=== PATIENT | male | born 1985 | race Caucasian/White ===

== ENCOUNTER 2018-03-13 02:36 | Emergency (ER) | payer MEDICAID, OTHER ==
--- NOTE | 2018-03-13 02:54 | EDPHY ---
H & P Stated Complaint: vomiting with buring abd pain Time Seen by Provider: 03/13/18 02:54 HPI/ROS: HPI CHIEF COMPLAINT: Abdominal pain and vomiting after eating pizza. HISTORY OF PRESENT ILLNESS: Very pleasant 32-year-old male, history of schizoaffective disorder, presents emergency room with nausea vomiting. Patient reports that he ate [employer] around 6:00 a.m. Tonight. He arrived to work at 11:00 p.m. 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 No diarrhea. No lower abdominal pain. Patient denies any chest pain or shortness of breath. Denies fever. Patient states he vomited about 10-15 times. He states he abdominal pain is pretty much stopped. Past Medical History: Medical history significant for bipolar type schizoaffective disorder. Hyperlipidemia. Past Surgical History: No recent surgery, history left foot surgery. Social History: Smokes tobacco, denies illicit drugs or alcohol. Family History: Noncontributory ROS REVIEW OF SYSTEMS: 10 Systems were reviewed and negative with the exception of the elements mentioned in the history of present illness. Exam Constitutional nontoxic appearing, triage nursing summary reviewed, vital signs reviewed, awake/alert. Eyes normal conjunctivae and sclera, EOMI, PERRLA. HENT normal inspection, atraumatic, moist mucus membranes, no epistaxis, neck supple/ no meningismus, no raccoon eyes. Respiratory clear to auscultation bilaterally, normal breath sounds, no respiratory distress, no wheezing. Cardiovascular rate normal, regular rhythm, no murmur, no edema, distal pulses normal. Gastrointestinal I cannot elicit any tenderness on exam, soft, non-tender, no rebound, no guarding, normal bowel sounds, no distension, no pulsatile mass. Genitourinary no CVA tenderness. Musculoskeletal no midline vertebral tenderness, full range of motion, no calf swelling, no tenderness of extremities, no meningismus, good pulses, neurovascularly intact. Skin pink, warm, & dry, no rash, skin atraumatic. Neurologic awake, alert and oriented x 3, AAOx3, moves all 4 extremities equally, motor intact, sensory intact, CN II-XII intact, normal cerebellar, normal vision, normal speech. Psychiatric normal mood/affect. Heme/Lymph/Immune no lymphadenopathy. Differential diagnosis includes but is not limited to and in no particular order : Bowel obstruction, appendicitis, gallbladder disease, diverticulitis, colitis , enteritis, perforated viscus, gastritis, GERD, esophagitis, urinary tract infection, pyelonephritis, kidney stones Medical Decision Making: Plan for this patient IV establishment IV fluid bolus 2 L normal saline, IV Zofran for nausea, basic blood work, electrolytes, UA, ultrasound right upper quadrant re-evaluate. Re-evaluation: Patient re-evaluated at 5:04 a.m. Resting comfortably no acute distress. Patient is not vomiting. Patient is re-examination at 5:04 a.m. Abdomen soft nontender. Patient's ultrasound called to me negative for acute cholecystitis or gallstones. Enlarged liver. Lab work reviewed. Patient is feeling much better after nausea medicine IV fluids. Will need to re-evaluate. 0701: Patient re-evaluated at this time resting comfortably. No acute distress. Denies any abdominal pain re-examination abdomen is soft nontender. He denies any abdominal pain anymore. P.o. Challenge well. Blood work reviewed. Return precautions discussed with the patient understands return emergency room if there is worsening abdominal pain, fever, vomiting. Source: Patient - Personal History Current Tetanus/Diphtheria Vaccine: Yes Current Tetanus Diphtheria and Acellular Pertussis (TDAP): Yes - Medical/Surgical History Hx Asthma: No Hx Chronic Respiratory Disease: No Hx Diabetes: No Hx Cardiac Disease: No Hx Renal Disease: No Hx Cirrhosis: No Hx Alcoholism: No Hx HIV/AIDS: No Hx Splenectomy or Spleen Trauma: No Other PMH: SCHIZOAFFECTIVE/HYPOTHYROID, cyst removal off of foot - Social History Smoking Status: Current every day smoker Constitutional: Initial Vital Signs Temperature (C) 36.4 C 03/13/18 02:38 Heart Rate 96 03/13/18 02:38 Respiratory Rate 16 03/13/18 02:38 Blood Pressure 113/80 03/13/18 02:38 O2 Sat (%) 94 03/13/18 02:38 O2 Delivery Mode Room Air Allergies/Adverse Reactions: bacitracin [From Neosporin] Allergy (Verified 03/13/18 02:41) bacitracin zinc [From Neosporin] Allergy (Verified 03/13/18 02:41) benzalkonium chloride [From Neosporin] Allergy (Verified 03/13/18 02:41) gramicidin D [From Neosporin] Allergy (Verified 03/13/18 02:41) hydrocortisone [From Neosporin] Allergy (Verified 03/13/18 02:41) neomycin sulfate [From Neosporin] Allergy (Verified 03/13/18 02:41) polymyxin B [From Neosporin] Allergy (Verified 03/13/18 02:41) polymyxin B sulfate [From Neosporin] Allergy (Verified 03/13/18 02:41) Home Medications: Medication Instructions Recorded ARIPiprazole [Abilify] 15 mg PO DAILY #1 tablet 12/09/14 Levothyroxine 03/13/18 Medical Decision Making - Data Points Laboratory Results: Laboratory Results 03/13/18 03:08 03/13/18 03:08 03/13/18 03/13/18 03/13/18 05:14 03:08 03:08 WBC 11.38 10^3/uL H 10^3/uL (3.80-9.50) RBC 5.31 10^6/uL 10^6/uL (4.40-6.38) Hgb 16.0 g/dL g/dL (13.7-17.5) Hct 47.8 % % (40.0-51.0) MCV 90.0 fL fL (81.5-99.8) MCH 30.1 pg pg (27.9-34.1) MCHC 33.5 g/dL g/dL (32.4-36.7) RDW 13.4 % % (11.5-15.2) Plt Count 262 10^3/uL 10^3/uL (150-400) MPV 11.0 fL fL (8.7-11.7) Neut % (Auto) 60.4 % % (39.3-74.2) Lymph % (Auto) 25.7 % % (15.0-45.0) Dickson % (Auto) 10.1 % % (4.5-13.0) Eos % (Auto) 1.2 % % (0.6-7.6) Baso % (Auto) 0.4 % % (0.3-1.7) Nucleat RBC Rel Count 0.0 % % (0.0-0.2) Absolute Neuts (auto) 6.86 10^3/uL H 10^3/uL (1.70-6.50) Absolute Lymphs (auto) 2.93 10^3/uL 10^3/uL (1.00-3.00) Absolute Monos (auto) 1.15 10^3/uL H 10^3/uL (0.30-0.80) Absolute Eos (auto) 0.14 10^3/uL 10^3/uL (0.03-0.40) Absolute Basos (auto) 0.05 10^3/uL 10^3/uL (0.02-0.10) Absolute Nucleated RBC 0.00 10^3/uL 10^3/uL (0-0.01) Immature Gran % 2.2 % H % (0.0-1.1) Immature Gran # 0.25 10^3/uL H 10^3/uL (0.00-0.10) Sodium 140 mEq/L mEq/L (135-145) Potassium 4.3 mEq/L mEq/L (3.5-5.2) Chloride 108 mEq/L mEq/L (97-110) Carbon Dioxide 22 mEq/l mEq/l (22-31) Anion Gap 10 mEq/L mEq/L (6-14) BUN 15 mg/dL mg/dL (7-23) Creatinine 1.0 mg/dL mg/dL (0.7-1.3) Estimated GFR > 60 Glucose 97 mg/dL mg/dL (70-100) Calcium 9.4 mg/dL mg/dL (8.5-10.4) Total Bilirubin 0.2 mg/dL mg/dL (0.1-1.4) Conjugated Bilirubin 0.2 mg/dL mg/dL (0.0-0.5) Unconjugated Bilirubin 0.0 mg/dL mg/dL (0.0-1.1) AST 32 IU/L IU/L (17-59) ALT 50 IU/L IU/L (21-72) Alkaline Phosphatase 59 IU/L IU/L (38-126) Total Protein 7.7 g/dL g/dL (6.3-8.2) Albumin 4.4 g/dL g/dL (3.5-5.0) Lipase 74 IU/L IU/L (23-300) Urine Color PALE YELLOW Urine Appearance CLEAR Urine pH 5.0 (5.0-7.5) Ur Specific [place] 1.005 (1.002-1.030) Urine Protein NEGATIVE (NEGATIVE) Urine Ketones NEGATIVE (NEGATIVE) Urine Blood NEGATIVE (NEGATIVE) Urine Nitrate NEGATIVE (NEGATIVE) Urine Bilirubin NEGATIVE (NEGATIVE) Urine Urobilinogen NEGATIVE EU EU (0.2-1.0) Ur Leukocyte Esterase NEGATIVE (NEGATIVE) Urine Glucose NEGATIVE (NEGATIVE) Medications Given: Discontinued Medications Sodium Chloride (Ns) 1,000 mls @ 0 mls/hr IV EDNOW ONE; Wide Open PRN Reason: Protocol Stop: 03/13/18 02:56 Last Admin: 03/13/18 03:07 Dose: 1,000 mls Sodium Chloride (Ns) 1,000 mls @ 0 mls/hr IV ONCE ONE PRN Reason: Wide Open Stop: 03/13/18 03:03 Last Admin: 03/13/18 03:07 Dose: 1,000 mls Ondansetron HCl (Zofran) 4 mg IVP EDNOW ONE Stop: 03/13/18 02:56 Last Admin: 03/13/18 03:07 Dose: 4 mg Departure - Departure Disposition: Home, Routine, Self-Care Clinical Impression: Vomiting Qualifiers: Vomiting type: unspecified Vomiting Intractability: non-intractable Nausea presence: with nausea Qualified Code(s): R11.2 - Nausea with vomiting, unspecified Condition: Good Instructions: Acute Nausea and Vomiting (ED) Referrals: NONE *PRIMARY CARE P,. [Primary Care Provider] - As per Instructions
[2018-03-13] MEDS ORDERED: ONDANSETRON 4 MG/2 ML VIAL IVP ONE (02:55)
[2018-03-13] MEDS ORDERED: NS 1,000 ML IV ONE ×2 (02:55→03:02)
[2018-03-13 03:18] LABS: PLATELET COUNT 262 10^3/uL (150-400)
[2018-03-13 07:45] VITALS: BP 95/64
== END 2018-03-13 07:46 | disposition home or self-care (01) ==
DX: R11.2 Nausea with vomiting, unspecified (principal); R10.11 Right upper quadrant pain; F25.9 Schizoaffective disorder, unspecified; E03.9 Hypothyroidism, unspecified
CPT/HCPCS: 76705; 96361; 96374; 99284; J2405